=== PATIENT | male | born 1990 | race Caucasian/White ===

== ENCOUNTER 2019-02-27 04:57 | Emergency (ER) | payer OTHER ==
[2019-02-27] MEDS ORDERED: Acetaminophen/oxyCODONE 325-5 MG Tab PO ONE ×2 (05:16→09:16)
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
[2019-02-27 08:08] LABS: CHLORIDE,CL 106 mmol/L (98-107); SODIUM,NA 143 mmol/L (136-145)
[2019-02-27 08:09] LABS: ANION GAP 10.8 mmol/L (10-20)
--- NOTE | 2019-02-27 09:05 | CT ---
[id number] CT/CT Elbow Right WO IV Exam: CT Elbow Right WO IV Clinical Data: TRAUMA COMPARISON: NO PREVIOUS SIMILAR EXAM IS AVAILABLE FINDINGS: The berry grower film demonstrates a widely diastatic olecranon ulnar fracture with articular involvement The olecranon fracture is comminuted The radial head and capitellum remain in normal alignment There is posterior displacement of the middle butterfly olecranon fracture fragment IMPRESSION: COMMINUTED DIASTATIC INTRA-ARTICULAR OLECRANON FRACTURE Delvin Vee MD 02/27/19 [id number] Thank you for allowing us to participate in the care of your patient.
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
== END 2019-02-27 09:25 | disposition home or self-care (01) ==
LOC: VM.ED 04:57
DX: S52.021A Displaced fracture of olecranon process without intraarticular extension of right ulna, initial encounter for closed fracture (principal); V18.0XXA Pedal cycle driver injured in noncollision transport accident in nontraffic accident, initial encounter; Y93.39 Activity, other involving climbing, rappelling and jumping off
CPT/HCPCS: 29105; 36415; 73030; 73060; 73080; 73090; 73110; 73200; 80048; 99283; 99284; A9270